=== PATIENT | female | born 1955 | race Caucasian/White ===

== ENCOUNTER 2020-06-19 06:56 | Day surgery (SDC) | payer MEDICARE ==
[2020-06-19] MEDS ORDERED: fentaNYL 100 MCG/2 ML SDV ONE (07:20)
[2020-06-19] MEDS ORDERED: Midazolam 1 MG/ML 2 ML SDV ONE (07:20)
[2020-06-19] MEDS ORDERED: Propofol 200 MG/20 ML SDV ONE (07:21)
[2020-06-19] MEDS ORDERED: Sodium Chloride 0.9% 1,000 ML IV SCH (08:15)
--- NOTE | 2020-06-19 11:46 | OR ---
DATE OF PROCEDURE: 06/19/2020 SURGEON: Braydon Heller MD PROCEDURE: Colonoscopy. FINDINGS: Normal colonoscopy. COMPLICATIONS: None. SOFTWARE PROJECT ENGINEER: None. ANESTHETIC: MAC. PREOPERATIVE DIAGNOSIS: Screening colonoscopy. POSTOPERATIVE DIAGNOSIS: Screening colonoscopy. RISKS: Risks, benefits, alternatives, and limitations including, but not limited to, infection, bleeding, false positives, and false negatives were explained to the patient, who wished to proceed. Prep was noted to be acceptable, approximately 90% luminal surface. Greater than 80% of the surface could be seen. DESCRIPTION OF PROCEDURE: The patient was placed in left lateral decubitus position. Digital rectal exam was performed without abnormality. Scope was introduced and advanced atraumatically to the ileocecal valve. Photo was taken. Scope was brought back to the ascending, transverse, descending colon, and retroflexed. No old or new blood. No masses. No polyps. No diverticulosis. The prep was acceptable. Approximately 90% of the luminal surface could be seen. Greater than 8 minutes were spent removing the scope. The patient tolerated the procedure well. Braydon Heller MD /[id number]
== END 2020-06-19 09:45 | disposition home or self-care (01) ==
LOC: JP.SDS 06:56 → EDBD 09:30 → JP.SDS 09:45
PROVIDERS: ATTEND Surgery
DX: Z12.11 Encounter for screening for malignant neoplasm of colon (principal); I10 Essential (primary) hypertension; E78.5 Hyperlipidemia, unspecified; Z86.010 Personal history of colon polyps
CPT/HCPCS: G0105; J2250; J2704; J3010; J7030